=== PATIENT | male | born 1995 | race Caucasian/White ===

== ENCOUNTER 2018-01-05 11:15 | Emergency (ER) | payer BC ==
[2018-01-05 11:21] VITALS: BP 100/62
[2018-01-05] MEDS ORDERED: LIDOCAINE 4%/MENTHOL 1% PATCH TD ONE (11:26)
--- NOTE | 2018-01-05 11:50 | EDPHY ---
HPI/HX/ROS/PE/MDM Narrative: CHIEF COMPLAINT: Low back pain HPI: The patient is a healthy 22-year-old male with no significant past medical history. Yesterday, while at work, the patient was lifting something heavy when he felt acute pain in the right lower back. This pain increased over the course of last night and became worse this morning. The patient complains of pain with movement. If he is still he has minimal pain. He denies any pain with urination or blood in urine. No abdominal pain. No fever. No history of back injury or surgery. No incontinence, numbness or difficulty walking. REVIEW OF SYSTEMS: Aside from elements discussed in the HPI, a comprehensive 10-point review of systems was reviewed and is negative. PMH: None significant. SOCIAL HISTORY: Single. Student. PHYSICAL EXAM: General:Patient is alert, in no acute distress. ENT:Eyes are normal to inspection. ENT inspection normal. Neck: Normal inspection. Full range of motion. Respiratory:No respiratory distress. Breath sounds normal bilaterally. Cardiovascular: Regular rate and rhythm. Strong peripheral pulses. Normal cap refill. Abdomen:The abdomen is nontender to palpation. There are no peritoneal signs. There are normal bowel sounds. Back: Normal to inspection. No tenderness to palpation. Skin: Normal color. No rash. Warm and dry. Extremities: Normal appearance. Full range of motion. Neuro: Oriented x3. Normal motor function. Normal sensory function. MDM: This patient is young, healthy and presents with signs and symptoms consistent with a low back strain. There is no evidence of epidural abscess, fracture, AAA or cauda equina. I will treat the patient conservatively with lidoderm patch is, muscle relaxant and NSAIDs. - Data Points Medications Given: Discontinued Medications Miscellaneous Medication (Icy Hot Lidocaine/Menthol 4%/1% Patch) 1 patch TD EDNOW ONE Stop: 01/05/18 11:27 Last Admin: 01/05/18 11:29 Dose: 1 patch General Time Seen by Provider: 01/05/18 11:21 Initial Vital Signs: Initial Vital Signs Temperature (C) 36.5 C 01/05/18 11:18 Heart Rate 81 01/05/18 11:18 Respiratory Rate 16 01/05/18 11:18 Blood Pressure 100/62 01/05/18 11:18 O2 Sat (%) 97 01/05/18 11:18 O2 Delivery Mode Room Air Allergies/Adverse Reactions: No Known Allergies Allergy (Unverified 01/05/18 11:17) Home Medications: Medication Instructions Recorded Cyclobenzaprine [Flexeril] 10 mg PO TID #15 tab 01/05/18 Ibuprofen [Motrin (*)] 800 mg PO Q8 5 Days tab 01/05/18 Lidocaine 4%/Menthol 1% [Icy Hot 1 patch TD DAILY #5 patch 01/05/18 Lidocaine/Menthol 4%/1% Patch (*)] Departure - Departure Disposition: Home, Routine, Self-Care Clinical Impression: Low back strain Condition: Good Instructions: Low Back Strain (ED) Additional Instructions: Followup with a primary doctor or security delivery specialist within one week. Return to the emergency department for severe pain, fever, numbness, difficulty walking, change in location or nature of pain or other concerns. Try using a heating pad. Referrals: DHARMESH GOMES [Other] - As per Instructions Aracely Hills MD [Medical Doctor] - As per Instructions Stand Alone Forms: Work Excuse Prescriptions: Cyclobenzaprine [Flexeril] 10 mg PO TID #15 tab Ibuprofen [Motrin (*)] 800 mg PO Q8 5 Days tab Lidocaine 4%/Menthol 1% [Icy Hot Lidocaine/Menthol 4%/1% Patch (*)] 1 patch TD DAILY #5 patch
[2018-01-05] MEDS ORDERED: PATCH REMOVAL 1 EA PATCH TD SCH (21:00)
== END 2018-01-05 12:01 | disposition home or self-care (01) ==
DX: S39.012A Strain of muscle, fascia and tendon of lower back, initial encounter (principal); X50.0XXA Overexertion from strenuous movement or load, initial encounter